=== PATIENT | male | born 1945 | race Caucasian/White ===

== ENCOUNTER 2018-01-19 20:25 | Inpatient (IN) | payer MEDICARE ==
--- NOTE | 2018-01-19 21:29 | ED ---
Abdominal Pain HPI - General Chief Complaint: Abdominal Pain Stated Complaint: vomiting/abdominal pain Time Seen by Provider: 01/19/18 21:28 Source: patient Mode of arrival: ambulatory Limitations: no limitations - History of Present Illness Initial Comments: Mr. Daniel is a 72-year-old male with a past medical history significant for recurrent episodes of diverticulitis in the past 2 presents the emergency department today for reevaluation of left lower quadrant abdominal pain, diarrhea, nausea and vomiting. Patient reports that a few weeks ago he had left lower quadrant abdominal pain which he suspected was diverticulitis, he was evaluated by his primary care physician and given oral antibiotics which she completed. He reports he had a couple weeks of resolution of his symptoms at that time. Patient states that on Wednesday he began feeling pain in his left lower quadrant with some associated diarrhea. This persisted so he saw his doctor again on Wednesday and was prescribed Augmentin. Patient reports he has been attempting to take the Augmentin but has been very nauseated and has vomited multiple times. He reports that he thinks he is only been unable to hold down approximately 2 doses of the medication. He reports that he continues to have left lower quadrant abdominal pain, his diarrhea has subsided and he states that he feels like it's because they're simply nothing left inside of him. Patient believes his last colonoscopy was approximately 3 years ago, a confirm that he has diverticulosis as well as polyps and he was advised to follow-up in 5 years. Patient reports subjective feeling feverish, chills, nausea, nonbloody nonbilious emesis, nonbloody diarrhea. He denies any chest pain, palpitations or shortness of breath. - Related Data Home Medications Medication Instructions Recorded Confirmed Aspirin 325 mg PO Q4-6H PRN 05/20/15 05/21/15 Multivitamins, Thera [Multivitamin] 1 tab PO DAILY 05/20/15 05/21/15 Allergies Allergy/AdvReac Type Severity Reaction Status Date / Time No Known Allergies Allergy Verified 01/19/18 20:39 Review of Systems ROS Statement: Those systems with pertinent positive or pertinent negative responses have been documented in the HPI. ROS Other: All systems not noted in ROS Statement are negative. Past Medical History Past Medical History: No Reported History Additional Past Medical History / Comment(s): HYPOTENSION. History of Any Multi-Drug Resistant Organisms: None Reported Past Surgical History: Cholecystectomy Additional Past Surgical History / Comment(s): POLYPS. BILATARAL CATARACTS. CUT TO WRIST, STICHES ( WAS NOT SURE OF WHAT SIDE). Past Anesthesia/Blood Transfusion Reactions: No Reported Reaction Past Psychological History: No Psychological Hx Reported Smoking Status: Never smoker Past Alcohol Use History: Occasional Past Drug Use History: None Reported General Exam Limitations: no limitations General appearance: alert, other (Appears uncomfortable) Head exam: Present: atraumatic, normocephalic Eye exam: Present: normal appearance, PERRL, EOMI ENT exam: Present: mucous membranes moist Neck exam: Present: normal inspection Respiratory exam: Present: normal lung sounds bilaterally. Absent: respiratory distress Cardiovascular Exam: Present: regular rate, normal rhythm GI/Abdominal exam: Present: soft, distended, tenderness, guarding (Voluntary guarding), normal bowel sounds. Absent: rebound, rigid, mass, hernia Rectal exam: Present: deferred Extremities exam: Present: normal inspection Back exam: Present: normal inspection Neurological exam: Present: alert, oriented X3 Psychiatric exam: Present: normal affect, normal mood Skin exam: Present: warm, dry, intact Course Vital Signs 01/19/18 01/19/18 20:34 23:44 Temperature 99.2 F 98.6 F Pulse Rate 72 62 Respiratory 16 20 Rate Blood Pressure 140/82 115/63 O2 Sat by Pulse 97 95 Oximetry Medical Decision Making - Medical Decision Making Patient was seen and evaluated, history was obtained from the patient and at bedside Patient with a history of recurrent diverticulitis, had an apparent episode 3-4 weeks ago which was treated with by mouth antibiotics, no imaging was completed at that time Patient with persistent left lower quadrant abdominal pain for 3-4 days duration , vomiting up his oral antibiotics, multiple episodes of diarrhea. Vital signs with no Sirs criteria Labs and imaging, IV fluids morphine and Zofran were ordered Labs with leukocytosis with neutrophilia Patient care was discussed with patient's primary care physician Dr. Graham who is very familiar with this patient, computed tomography scan is still pending but he recommends admission for IV antibiotics given the patient's history. It CT reveals any acute surgical pathology surgery is to be consult and I will update him. Computed tomography scan reveals acute diverticulitis without abscess or perforation. At this time we will continue with the plan as discussed with Dr. Graham, patient will be admitted for IV antibiotics, IV pain management and antiemetics. IV fluids were ordered. - Lab Data Result diagrams: 01/19/18 21:32 01/19/18 21:32 Lab Results 01/19/18 01/19/18 01/19/18 Range/Units 21:32 21:32 21:32 WBC 16.4 H (3.8-10.6) k/uL RBC 5.09 (4.30-5.90) m/uL Hgb 15.8 (13.0-17.5) gm/dL Hct 48.0 (39.0-53.0) % MCV 94.4 (80.0-100.0) fL MCH 31.1 (25.0-35.0) pg MCHC 32.9 (31.0-37.0) g/dL RDW 13.1 (11.5-15.5) % Plt Count 240 (150-450) k/uL Neutrophils % 83 % Lymphocytes % 10 % Monocytes % 6 % Eosinophils % 1 % Basophils % 0 % Neutrophils # 13.6 H (1.3-7.7) k/uL Lymphocytes # 1.6 (1.0-4.8) k/uL Monocytes # 0.9 (0-1.0) k/uL Eosinophils # 0.2 (0-0.7) k/uL Basophils # 0.0 (0-0.2) k/uL PT 10.6 (9.0-12.0) sec INR 1.1 (<1.2) APTT 21.5 L (22.0-30.0) sec Sodium 139 (137-145) mmol/L Potassium 4.6 (3.5-5.1) mmol/L Chloride 103 (98-107) mmol/L Carbon Dioxide 29 (22-30) mmol/L Anion Gap 7 mmol/L BUN 23 H (9-20) mg/dL Creatinine 1.08 (0.66-1.25) mg/dL Est GFR (CKD-EPI)AfAm 78 (>60 ml/min/1.73 sqM) Est GFR (CKD-EPI)NonAf 68 (>60 ml/min/1.73 sqM) Glucose 108 H (74-99) mg/dL Calcium 9.3 (8.4-10.2) mg/dL Total Bilirubin 0.9 (0.2-1.3) mg/dL AST 23 (17-59) U/L ALT 26 (21-72) U/L Alkaline Phosphatase 56 (38-126) U/L Total Protein 7.4 (6.3-8.2) g/dL Albumin 4.0 (3.5-5.0) g/dL Lipase 32 (23-300) U/L Urine Color Urine Appearance (Clear) Urine pH (5.0-8.0) Ur Specific [place] (1.001-1.035) Urine Protein (Negative) Urine Glucose (UA) (Negative) Urine Ketones (Negative) Urine Blood (Negative) Urine Nitrite (Negative) Urine Bilirubin (Negative) Urine Urobilinogen (<2.0) mg/dL Ur Leukocyte Esterase (Negative) 01/19/18 Range/Units 21:32 WBC (3.8-10.6) k/uL RBC (4.30-5.90) m/uL Hgb (13.0-17.5) gm/dL Hct (39.0-53.0) % MCV (80.0-100.0) fL MCH (25.0-35.0) pg MCHC (31.0-37.0) g/dL RDW (11.5-15.5) % Plt Count (150-450) k/uL Neutrophils % % Lymphocytes % % Monocytes % % Eosinophils % % Basophils % % Neutrophils # (1.3-7.7) k/uL Lymphocytes # (1.0-4.8) k/uL Monocytes # (0-1.0) k/uL Eosinophils # (0-0.7) k/uL Basophils # (0-0.2) k/uL PT (9.0-12.0) sec INR (<1.2) APTT (22.0-30.0) sec Sodium (137-145) mmol/L Potassium (3.5-5.1) mmol/L Chloride (98-107) mmol/L Carbon Dioxide (22-30) mmol/L Anion Gap mmol/L BUN (9-20) mg/dL Creatinine (0.66-1.25) mg/dL Est GFR (CKD-EPI)AfAm (>60 ml/min/1.73 sqM) Est GFR (CKD-EPI)NonAf (>60 ml/min/1.73 sqM) Glucose (74-99) mg/dL Calcium (8.4-10.2) mg/dL Total Bilirubin (0.2-1.3) mg/dL AST (17-59) U/L ALT (21-72) U/L Alkaline Phosphatase (38-126) U/L Total Protein (6.3-8.2) g/dL Albumin (3.5-5.0) g/dL Lipase (23-300) U/L Urine Color Yellow Urine Appearance Clear (Clear) Urine pH 5.5 (5.0-8.0) Ur Specific [place] 1.026 (1.001-1.035) Urine Protein Trace H (Negative) Urine Glucose (UA) Negative (Negative) Urine Ketones 1+ H (Negative) Urine Blood Negative (Negative) Urine Nitrite Negative (Negative) Urine Bilirubin Negative (Negative) Urine Urobilinogen 3.0 (<2.0) mg/dL Ur Leukocyte Esterase Negative (Negative) Disposition Clinical Impression: Diverticulitis Disposition: ADMITTED IP TO THIS [facility] Condition: Good Is patient prescribed a controlled substance at d/c from ED?: No Referrals: Stew Graham MD [Primary Care Provider] - 1-2 days Decision Time: 23:27
[2018-01-19] MEDS ORDERED: SODIUM CHLORIDE 0.9% 1,000 ML IV STA (21:42)
[2018-01-19] MEDS ORDERED: MORPHINE SULFATE 4 MG/ML SYRINGE IV STA (21:42)
[2018-01-19 21:57] LABS: Appearance,Urine Clear (Clear); Basophils % (A) 0 %; Bilirubin,Urine Negative (Negative); Blood,Urine Negative (Negative); Color,Urine Yellow; Eosinophils # (A) 0.2 k/uL (0-0.7); Eosinophils % (A) 1 %; Glucose,Urine (UA) Negative (Negative); HGB 15.8 gm/dL (13.0-17.5); Ketones,Urine 1+ (Negative); Leukocyte Esterase,Urine Negative (Negative); Lymphocytes # (A) 1.6 k/uL (1.0-4.8); Lymphocytes % (A) 10 %; MCH 31.1 pg (25.0-35.0); MCHC 32.9 g/dL (31.0-37.0); MCV 94.4 fL (80.0-100.0); Mean Platelet Volume 8.4; Monocytes # (A) 0.9 k/uL (0-1.0); Monocytes % (A) 6 %; Neutrophils # (A) 13.6 k/uL (1.3-7.7); Neutrophils % (A) 83 %; Nitrite,Urine Negative (Negative); PH, Urine 5.5 (5.0-8.0); Platelet Count 240 k/uL (150-450); Protein,Urine Trace (Negative); RBC 5.09 m/uL (4.30-5.90); RDW 13.1 % (11.5-15.5); Specific Gravity,Urine 1.026 (1.001-1.035); WBC 16.4 k/uL (3.8-10.6)
[2018-01-19] MEDS ORDERED: ONDANSETRON 4 MG/2 ML VIAL IVP STA (22:01)
[2018-01-19 22:05] LABS: Calcium 9.3 mg/dL (8.4-10.2); Potassium 4.6 mmol/L (3.5-5.1); Total Bilirubin 0.9 mg/dL (0.2-1.3); Total Protein 7.4 g/dL (6.3-8.2)
[2018-01-19 22:12] LABS: INR 1.1 (<1.2); Prothrombin Time 10.6 sec (9.0-12.0)
[2018-01-19 22:25] LABS: Partial Thromboplastin Time 21.5 sec (22.0-30.0)
[2018-01-19] MEDS ORDERED: PIPERACILLIN-TAZOBACTAM 3.375 GM in DEXTROSE/WATER 1 50ML.BAG IVPB STA (22:56)
--- NOTE | 2018-01-19 23:04 | CT ---
EXAMINATION TYPE: CT abdomen pelvis wo con DATE OF EXAM: 01/19/2018 COMPARISON: 09/03/2009 HISTORY: Abdominal pain, diverticulitits CT DLP: 793.9 mGycm Automated exposure control for dose reduction was used. TECHNIQUE: Helical acquisition of images was performed from the lung bases through the pelvis. FINDINGS: Lung bases are clear of consolidation. There is no pleural effusion. Heart size is normal. Liver spleen pancreas appear normal. Bile ducts are not dilated. There are clips from cholecystectomy . There is no adrenal mass. Kidneys have normal size. There are left renal parapelvic cysts. Ureters ar e not dilated. There is wall thickening and fat stranding around the proximal sigmoid colon. This harman sures 8 cm in length. There are numerous sigmoid diverticula. There is small amount of fluid in the l eft paracolic gutter. There is no sign of free air. There is no evidence of a thickened appendix. Sma ll bowel appears normal. There is no retroperitoneal adenopathy. Bladder distends smoothly. There is no free fluid in the pelvis. Lumbar spine is intact. IMPRESSION: INFLAMMATORY CHANGES AROUND THE PROXIMAL SIGMOID COLON RELATED TO ACUTE DIVERTICULITIS. NO DRAINABLE FLUID COLLECTION. THIS APPEARS NEW COMPARED TO OLD CT SCAN. NORMAL APPENDIX.
[2018-01-19] MEDS ORDERED: ONDANSETRON 4 MG/2 ML VIAL IVP PRN (23:23)
[2018-01-19] MEDS ORDERED: NALOXONE 0.4 MG/ML 1 ML VIAL IV PRN (23:23)
[2018-01-20] MEDS: MORPHINE SULFATE 4 MG/ML SYRINGE IV PRN ×2 (00:57→06:47)
[2018-01-20] MEDS: SODIUM CHLORIDE 0.9% 1,000 ML IV SCH ×4 (02:23→20:38)
[2018-01-20] MEDS: KETOROLAC 30 MG/ML 1 ML VIAL IVP SCH ×3 (12:07→23:05)
[2018-01-20] MEDS: HEPARIN SODIUM,PORCINE 5,000 UNIT/ML 1 ML VIAL SQ SCH ×2 (16:27→23:08)
--- NOTE | 2018-01-20 23:36 | HP ---
HISTORY AND PHYSICAL ATTENDING PHYSICIAN: Dr. Angeles Graham. CHIEF COMPLAINT: Abdominal pain. HISTORY OF PRESENT ILLNESS: This 72-year-old gentleman presents to the hospital emergency room with severe abdominal pain, some nausea, vomiting, and also an episode of diarrhea with no blood or mucus in the stool. The pain is mostly focused on the left lower quadrant and suprapubic area. He has had some fever and chills. The patient's symptoms started a few days ago. He was placed on Augmentin on the outpatient. The patient had similar symptoms about a month ago. It was a mild episode and it resolved. The patient at this time has a definite fever, localized abdominal pain and leukocytosis. No evidence of sepsis. The patient is seen in the emergency room, started on IV medications, hydration after a CT scan of the abdomen confirmed the patient had acute diverticulitis. PAST MEDICAL HISTORY: Is primarily significant for episode of acute diverticulitis about a month ago. Previous history of hyperlipidemia, BPH, bradycardia, allergic rhinitis and some degenerative arthritis. No history of any diabetes, lung disease, liver disease, kidney disease, ulcers, TB, hepatitis. No history of any rheumatic fever, myocardial infarction or CVA. Also significant for mild intermittent bronchial asthma. PAST SURGICAL HISTORY: Significant for cholecystectomy, bilateral cataract surgery, bilateral eyelid surgery. PERSONAL HISTORY: Never smoker. Alcohol: None. SOCIAL HISTORY: Patient , lives with his spouse, is a retired manufacturing, exercises occasionally. MEDICATIONS AT HOME: Included: 1. Augmentin 500/125 one b.i.d. 2. Aspirin 1 p.r.n. 3. Multivitamins daily. FAMILY MEDICAL HISTORY: Father at the age of 52 of a malignancy, unknown site. Mother at the of 80. She had a story of dementia. Brother at the age of 85, had history of dementia. A brother, 77, with a history of CVA. A sister, 74, , history of valvular heart disease and sister, 87 with history of dementia. The patient has a sister, 62, living with history of degenerative arthritis. The patient has no children. REVIEW OF SYSTEMS: NEURO: Denies any headaches, dizziness. No double vision, blurred vision. No symptoms of TIA, syncope, seizures. PSYCH: No anxiety, depression. CARDIAC: Denies chest pain, angina, palpitations. RESPIRATORY: Denies shortness of breath, cough, hemoptysis. GI: Present complaint of nausea, vomiting, abdominal pain, diarrhea. : No symptoms of dysuria, hematuria. Has a decreased stream and frequency. EXTREMITIES: Denies pain, edema. CONSTITUTIONAL: Fever and chills. SKIN: No rash. MUSCULOSKELETAL: Arthritic symptoms, mild. PHYSICAL EXAMINATION: Pleasant gentleman at present in no distress after having received pain medication earlier. Vital signs revealed patient's presenting temperature was 99.2, pulse 72, respirations 16, blood pressure 140/82, pulse ox 97% on room air. At the time of my evaluation, patient's temp is 97.9, pulse 67, respirations 14, blood pressure 120/70, pulse ox 93% on room air. HEENT: Normocephalic. Neck is supple. Pupils reactive. Conjunctivae are pink. Sclerae are nonicteric. Nostrils clear. Neck reveals no JVD, carotid bruits or thyromegaly. No supraclavicular lymphadenopathy. CHEST: Clear to auscultation and percussion. CARDIAC: Normal S1, S2 with no gallops, murmurs, rubs. ABDOMEN: Mildly protuberant. Tenderness with guarding, left lower quadrant. Minimal rebound tenderness. Bowel sounds active. RECTAL: Deferred. Extremities reveal no edema. No tenderness. Good pulses both upper and lower extremities. Neurologically, awake, alert, oriented x3 with well- coordinated movements. Small left inguinal hernia present. LABORATORY ASSESSMENT: CBC revealed white count 16.4, hemoglobin 15.8 and the patient had a left shift. INR is normal. Electrolytes are normal. BUN 23, creatinine 1.08, random glucose 108, normal hepatic function. Lipase is normal. Urine specific gravity 1.026. 1+ ketones. CT scan reveals acute diverticulitis changes, sigmoid area. ASSESSMENT: 1. Acute colonic diverticulitis. 2. Leukocytosis related to the diverticulitis. 3. Benign prostatic hypertrophy with urinary outlet obstruction symptoms. PLAN: The patient is admitted to the hospital, started on IV fluids, Zosyn and pain medication. We will add Toradol to the regimen. Clear liquids for the next 48 hours and progress according to tolerance. The patient's condition discussed with the patient. Expect a stay of length in the hospital about 3 days. MMODL / IJN: [id number] /
[2018-01-21] MEDS: KETOROLAC 30 MG/ML 1 ML VIAL IVP SCH ×3 (05:52→16:59)
[2018-01-21] MEDS: HEPARIN SODIUM,PORCINE 5,000 UNIT/ML 1 ML VIAL SQ SCH ×2 (07:55→15:54)
[2018-01-21] MEDS: PIPERACILLIN-TAZOBACTAM 3.375 GM in DEXTROSE/WATER 1 50ML.BAG IVPB SCH ×2 (08:36→15:55)
[2018-01-21] MEDS: SODIUM CHLORIDE 0.9% 1,000 ML IV SCH (12:01)
--- NOTE | 2018-01-22 00:10 | PN ---
PROGRESS NOTE ATTENDING PHYSICIAN: Dr. Sonia Graham. CHIEF COMPLAINT: Re-evaluation. HISTORY OF PRESENT ILLNESS: A 72-year-old gentleman was admitted to the hospital with acute abdominal pain, has evidence of diverticulitis. The patient has been placed on clear liquids, IV hydration, antibiotic and pain medication. He still has significant amount of pain. No nausea, vomiting. Today, he is tolerating clear liquids. No diarrhea. REVIEW OF SYSTEMS: NEURO: Denies any headaches, dizziness. PSYCH: No anxiety. CARDIAC: No chest pain, angina, palpitations. RESPIRATORY: Denies shortness of breath, cough, hemoptysis. GI: No nausea, vomiting. Does not complain of abdominal pain. No diarrhea, constipation. : No symptoms of dysuria, hematuria. EXTREMITIES: No pain. CONSTITUTIONAL: No fever, chills. PHYSICAL EXAMINATION: Pleasant gentleman in no distress. VITAL SIGNS: Temperature 98.1, pulse 65, respirations 100, blood pressure 140/84, pulse ox 95% on room air. HEENT: Normocephalic. NECK: No JVD. CHEST: Clear to auscultation and percussion. CARDIAC: Normal S1, S2 with no gallops, murmurs. Abdomen is tender with guarding left lower quadrant and suprapubic area. Bowel sounds are active. Extremities reveal no edema. No tenderness. The patient does have some rebound tenderness lower abdomen. Bowel sounds are active. Extremities reveal no edema. No tenderness. NEUROLOGIC: Awake, alert, oriented with well-coordinated movements. LABORATORY ASSESSMENT: None. ASSESSMENT: Acute diverticulitis, recurrent. PLAN: The patient at present is stable. Continue present medical regimen. The patient is still markedly tender with guarding and rebound. In view of this, will continue the patient on clear liquids, antibiotic, pain medication. The patient is on DVT prophylaxis. Prognosis remains guarded. Condition discussed with the patient. MMODL / IJN: [id number] /
[2018-01-22] MEDS: KETOROLAC 30 MG/ML 1 ML VIAL IVP SCH ×6 (00:49→23:23)
[2018-01-22] MEDS: HEPARIN SODIUM,PORCINE 5,000 UNIT/ML 1 ML VIAL SQ SCH ×4 (00:49→23:21)
[2018-01-22] MEDS: PIPERACILLIN-TAZOBACTAM 3.375 GM in DEXTROSE/WATER 1 50ML.BAG IVPB SCH ×4 (01:03→23:22)
[2018-01-22] MEDS: SODIUM CHLORIDE 0.9% 1,000 ML IV SCH ×2 (01:04→12:58)
[2018-01-22 08:20] LABS: HCT 38.3 % (39.0-53.0); HGB 13.1 gm/dL (13.0-17.5); MCH 31.9 pg (25.0-35.0); MCHC 34.2 g/dL (31.0-37.0); MCV 93.3 fL (80.0-100.0); Mean Platelet Volume 8.7; Platelet Count 212 k/uL (150-450); RBC 4.11 m/uL (4.30-5.90); RDW 12.9 % (11.5-15.5); WBC 6.2 k/uL (3.8-10.6)
[2018-01-22 08:45] LABS: Calcium 8.6 mg/dL (8.4-10.2); Potassium 4.1 mmol/L (3.5-5.1)
--- NOTE | 2018-01-22 23:44 | PN ---
PROGRESS NOTE ATTENDING PHYSICIAN: Dr. Angeles Graham. CHIEF COMPLAINT: Re-evaluation. HISTORY OF PRESENT ILLNESS: A 72-year-old was admitted to the hospital with acute abdominal pain. The patient had a low-grade fever and an elevated white count. Mild tenderness with some guarding, rebound tenderness in the left lower quadrant. The patient is feeling better. Symptoms are improved. Still has abdominal pain. REVIEW OF SYSTEMS: NEURO: Denies any headaches, dizziness. PSYCH: No anxiety. CARDIAC: No chest pain, angina, palpitation. RESPIRATORY: Denies shortness of breath, cough, hemoptysis. GI: No nausea, vomiting. Complains of abdominal pain. No diarrhea. Bowel movements normal. Extremities reveal no pain, edema. CONSTITUTIONAL: No fever, chills. PHYSICAL EXAMINATION: Pleasant gentleman in no distress. Vital signs revealed temperature 97.1, pulse 70, respirations 16, blood pressure 145/77, pulse ox of 97% on room air. HEENT: Normocephalic. NECK: No JVD. CHEST: Clear to auscultation, percussion. CARDIAC: Normal S1, S2 with no gallops, murmurs. Abdomen is tender, left lower quadrant with some guarding, but no rebound tenderness. Symptoms are improving. Extremities reveal no edema. No tenderness. Neurologically, awake, alert, oriented with well-coordinated movements. LABORATORY ASSESSMENT: Revealed the white count was down to normal 6.2, hemoglobin 13.1, platelets 212. Electrolytes: BUN, creatinine were in normal range. ASSESSMENT: 1. Acute diverticulitis. 2. History of benign prostatic hypertrophy. PLAN: The patient at present is stable. Continue present medical regimen. Patient's condition discussed with the patient. Prognosis guarded. Will advance the diet to full liquids today and tomorrow. Potential discharge home tomorrow. MMODL / IJN: [id number] /
[2018-01-23] MEDS: SODIUM CHLORIDE 0.9% 1,000 ML IV SCH (06:07)
[2018-01-23] MEDS: KETOROLAC 30 MG/ML 1 ML VIAL IVP SCH (06:07)
[2018-01-23 06:22] VITALS: BP 150/85; PULSE 58; RESP 16; TEMP 96.4
[2018-01-23] MEDS: PIPERACILLIN-TAZOBACTAM 3.375 GM in DEXTROSE/WATER 1 50ML.BAG IVPB SCH (08:18)
[2018-01-23] MEDS: HEPARIN SODIUM,PORCINE 5,000 UNIT/ML 1 ML VIAL SQ SCH (08:18)
--- NOTE | 2018-01-23 10:35 | P.DS ---
Providers Date of admission: 01/19/18 23:27 Expected date of discharge: 01/23/18 Attending physician: Stew Graham Primary care physician: Stew Graham [facility] Course: This 72-year-old gentleman was admitted to the hospital with nausea vomiting and severe left lower quadrant and suprapubic area abdominal pain. Low-grade fever. Patient was being treated on outpatient for diverticulitis in view of the severe pain patient presents to the hospital. CAT scan does reveal and confirmed acute diverticulitis without abscess formation. The patient's general condition improved with antiemetics hydration and subsequently admitted to the hospital for continued IV antibiotic and. And treatment. The patient initially was placed on clear liquids and subsequently advanced to full liquids. He was tolerating this well. Patient's pain is improved significantly. His white count was 16.4 at the time of admissions come back to normal range at 6.4. Patient had no further fever his generally feeling better and is review of this is being discharged home. He will be discharged home on Cipro 500 mg twice a day and Flagyl 500 3 times a day. He'll follow up on the outpatient. Patient's condition discussed with the patient in detail prognosis guarded. His diet will be low residue for the next 2 weeks and then subsequently high fiber has been told to avoid nuts and seeds Final diagnoses 1. Acute colonic diverticulitis 2. BPH. Patient Condition at Discharge: Good Plan - Discharge Summary Discharge Rx Participant: No New Discharge Prescriptions: New Ciprofloxacin [Cipro Susp] 500 mg PO AC-BID #14 tab metroNIDAZOLE [Flagyl] 500 mg PO TID #21 tab Continue Multivitamins, Thera [Multivitamin (formulary)] 1 tab PO DAILY Discontinued Aspirin 325 mg PO Q4-6H PRN PRN Reason: Pain Amoxic-Pot Clav 500-125 mg [Augmentin 500-125 mg] 1 tab PO Q12HR Discharge Medication List Multivitamins, Thera [Multivitamin (formulary)] 1 tab PO DAILY 05/20/15 [History ] Ciprofloxacin [Cipro Susp] 500 mg PO AC-BID #14 tab 01/23/18 [Rx] metroNIDAZOLE [Flagyl] 500 mg PO TID #21 tab 01/23/18 [Rx] Follow up Appointment(s)/Referral(s): Stew Graham MD [Primary Care Provider] - 1-2 days Activity/Diet/Wound Care/Special Instructions: low fiber/residual diet Discharge Disposition: HOME SELF-CARE
== END 2018-01-23 10:54 | disposition home or self-care (01) | DRG 392 ==
LOC: EC 20:25 → 4MS4W 23:27
PROVIDERS: ADMIT Internal Medicine; ATTEND Internal Medicine
DX: K57.32 Diverticulitis of large intestine without perforation or abscess without bleeding (principal); N13.8 Other obstructive and reflux uropathy; D72.829 Elevated white blood cell count, unspecified; E78.5 Hyperlipidemia, unspecified; J45.909 Unspecified asthma, uncomplicated; N40.1 Benign prostatic hyperplasia with lower urinary tract symptoms; Z79.82 Long term (current) use of aspirin; Z90.49 Acquired absence of other specified parts of digestive tract; Z98.42 Cataract extraction status, left eye; Z98.41 Cataract extraction status, right eye
CPT/HCPCS: 36415; 74176; 80048; 80053; 81003; 83690; 85025; 85027; 85610; 85730; 87040; 96361; 96365; 96366; 96375; 99285

== ENCOUNTER → 2019-11-16 | Outpatient (CLI) | payer MEDICARE ==
[2019-11-16 12:12] LABS: Basophils # (A) 0.1 k/uL (0-0.2); Basophils % (A) 1 %; Eosinophils # (A) 0.1 k/uL (0-0.7); Eosinophils % (A) 1 %; HCT 46.4 % (39.0-53.0); HGB 14.8 gm/dL (13.0-17.5); Lymphocytes # (A) 2.4 k/uL (1.0-4.8); Lymphocytes % (A) 36 %; MCH 31.6 pg (25.0-35.0); MCHC 31.9 g/dL (31.0-37.0); MCV 99.1 fL (80.0-100.0); Monocytes # (A) 0.5 k/uL (0-1.0); Monocytes % (A) 7 %; Neutrophils # (A) 3.5 k/uL (1.3-7.7); Neutrophils % (A) 52 %; Platelet Count 247 k/uL (150-450); RBC 4.69 m/uL (4.30-5.90); RDW 12.9 % (11.5-15.5); WBC 6.7 k/uL (3.8-10.6)
[2019-11-16 12:21] LABS: Calcium 9.2 mg/dL (8.4-10.2); Potassium 4.9 mmol/L (3.5-5.1)
== END | disposition home or self-care (01) ==
LOC: LABPAT 11:39
PROVIDERS: ATTEND Urology
DX: Z01.818 Encounter for other preprocedural examination (principal); N40.1 Benign prostatic hyperplasia with lower urinary tract symptoms; R53.83 Other fatigue
CPT/HCPCS: 80048; 85025; 93005

== ENCOUNTER 2019-11-23 06:24 | Day surgery (SDC) | payer MEDICARE ==
[2019-11-22 09:06] VITALS: BMI 28.5
--- NOTE | 2019-11-23 05:23 | P.GSHP ---
History of Present Illness H&P Date: 11/21/19 Chief Complaint: BPH with Obstruction The patient is a 74-year-old white male with a several year history of voiding symptoms. His primary symptoms are weak urinary stream, straining, intermittency, a feeling of incomplete emptying, and nocturia 6. Prior treatment with Flomax was unsuccessful. He underwent urinary flow studies, revealing a peak flow rate of 12 mL/s. The postvoid residual was 200 mL, though previously it was 21 mL. Cystoscopy revealed trilobar BPH, with a prosthetic length of 4 cm. Alternative treatment options have been reviewed, and he has elected to undergo a transurethral resection of prostate (TURP). - Genitourinary (Female) Genitourinary: Denies dysuria, Denies hematuria Past Medical History Past Medical History: No Reported History Additional Past Medical History / Comment(s): HYPOTENSION. History of Any Multi-Drug Resistant Organisms: None Reported Past Surgical History: Cholecystectomy Additional Past Surgical History / Comment(s): POLYPS. BILATARAL CATARACTS. CUT TO WRIST, STICHES ( WAS NOT SURE OF WHAT SIDE). Past Anesthesia/Blood Transfusion Reactions: No Reported Reaction Past Psychological History: No Psychological Hx Reported Smoking Status: Never smoker Past Alcohol Use History: Occasional Past Drug Use History: None Reported - Past Family History Father Family Medical History: Cancer Additional Family Medical History / Comment(s): unknown Sister(s) Additional Family Medical History / Comment(s): Heart condition Brother(s) Family Medical History: CVA/TIA Medications and Allergies Home Medications Medication Instructions Recorded Confirmed Type Cholecalciferol (Vitamin D3) 2,000 unit PO DAILY 11/22/19 11/22/19 History [Vitamin D3] Flaxseed Oil 1,000 mg PO DAILY 11/22/19 11/22/19 History Glucosam/Chond/Hyalu/Cf Borate 1 each PO DAILY 11/22/19 11/22/19 History [Move Free Joint Health Tablet] Multivitamins, Thera [Multivitamin 1 tab PO DAILY 11/22/19 11/22/19 History (formulary)] Allergies Allergy/AdvReac Type Severity Reaction Status Date / Time No Known Allergies Allergy Verified 11/22/19 08:56 Surgical - Exam - General well developed, well nourished, no distress - Respiratory normal respiratory effort - Abdomen Abdomen: soft, non tender, no guarding, no rigid, no rebound Hernia: no none, no inguinal, no epigastric, no incisional, no reducible, no femoral, no umbilical, no scrotal, no incarcerated - Genitourinary normal penis with no external lesions, testicles non-tender - Rectum Rectum: normal sphincter tone, no masses, other (Prostate moderately enlarged but smooth) - Psychiatric oriented to time, oriented to person, oriented to place, speech is normal, memory intact Assessment and Plan (1) Benign prostatic hyperplasia with lower urinary tract symptoms Status: Acute Code(s): N40.1 - BENIGN PROSTATIC HYPERPLASIA WITH LOWER URINARY TRACT SYMP SNOMED Code(s): 017796246 Plan: I had a lengthy discussion with the patient and his regarding alternative B PH treatment options. He failed treatment with an alpha-ondina. Options include observation, finasteride, and TURP. He has elected to undergo the latter. The procedure has been reviewed in detail. Also discussed were potential risks, which include anesthesia, bleeding, infection, retrograde ejaculation, incontinence, erectile dysfunction, and vesical neck contracture. He understands the possible need for hospitalization postoperatively.
[~2019-11-23 06:24] MED LIST: DEXAMETHASONE SOD PHOSPHATE 10 MG/ML 1 ML VIAL IV ONE; HYDROmorphone 0.5 MG/0.5 ML SYRINGE IVP PRN; LIDOCAINE 1% (10MG/ML) FOR IV START INTRADERMA PRN; ONDANSETRON 4 MG/2 ML VIAL IVP ONE
[2019-11-23] MEDS: LACTATED RINGERS 1,000 ML IV SCH ×2 (06:53→20:56)
[2019-11-23] MEDS ORDERED: LIDOCAINE 1% INJ 10MG/ML (20 ML MDV) ONE (07:26)
[2019-11-23] MEDS ORDERED: SUCCINYLCHOLINE CHLORIDE VIAL 200 MG/10 ML VIAL IV ONE (07:26)
[2019-11-23] MEDS ORDERED: PROPOFOL 10 MG/ML 20 ML VIAL IV ONE (07:26)
[2019-11-23] MEDS ORDERED: MIDAZOLAM 2 MG/2 ML VIAL ONE (07:26)
[2019-11-23] MEDS ORDERED: ePHEDrine SULFATE/0.9% NACL/PF 50 MG/5 ML SYRINGE IV ONE (07:26)
[2019-11-23] MEDS ORDERED: fentaNYL (PF) 50 MCG/ML 2 ML AMP ONE (07:26)
--- NOTE | 2019-11-23 10:57 | P.OP ---
Date of Procedure: 11/23/19 Preoperative Diagnosis: BPH with obstruction Postoperative Diagnosis: Same Procedure(s) Performed: Cystoscopy, bipolar transurethral resection of prostate (TURP) Anesthesia: JASMINE Surgeon: Kojo Sun Estimated Blood Loss (ml): 50 IV fluids (ml): 600 Pathology: other (Prostate chips) Condition: stable Disposition: PACU Indications for Procedure: The patient is a 74-year-old white male with a several year history of voiding symptoms. His primary symptoms are weak urinary stream, straining, intermittency, a feeling of incomplete emptying, and nocturia 6. Prior treatment with Flomax was unsuccessful. He underwent urinary flow studies, revealing a peak flow rate of 12 mL/s. The postvoid residual was 200 mL, though previously it was 21 mL. Cystoscopy revealed trilobar BPH, with a prosthetic length of 4 cm. Alternative treatment options have been reviewed, and he has elected to undergo a transurethral resection of prostate (TURP). Operative Findings: Trilobar BPH, completely obstructing. Description of Procedure: The patient was taken in the operating room and placed in the dorsolithotomy position. The external genitalia was prepped and draped sterilely. The 25- English ACMI resectoscope sheath was introduced into the bladder. The bladder was inspected. Both ureteral orifices were of normal anatomic location and configuration, and clear urine effluxed from both. No tumors or foreign bodies were seen. Examination of the prostate revealed complete obstruction with a trilobar configuration. Using the bipolar cutting loop, the lateral lobes were resected down to the surgical capsule. The floor of the prostate was then resected, proximal to the verumontanum. Lastly, any remaining anterior tissue was resected. The remaining apical tissue was then carefully resected, as the apex extended beyond the verumontanum. A small amount of apical tissue remained to avoid injury to the external urinary sphincter. The resection was carried down to the surgical capsule in all 4 quadrants. A small capsular perforation was noted on the right side. The prostatic fossa was then carefully examined, and any areas of bleeding were controlled with electrocautery. Excellent hemostasis was attained. The resectoscope was withdrawn into the bulbous urethra. The external urinary sphincter remained intact. The prostatic fossa was open. The apomio evacuator was used to remove all prostate chips from the bladder. These were saved and sent for pathologic examination. The resectoscope was removed, and a 22 English, 3-Way Bernal catheter was placed. The return was essentially pink tinged. Continuous bladder irrigation was started using 0.9 normal saline. The patient tolerated the procedure well was taken to the recovery room in stable condition.
[2019-11-23] MEDS ORDERED: MAG HYDROX/AL HYDROX/SIMETH 30 ML CUP PO PRN (10:58)
[2019-11-23] MEDS ORDERED: BELLADONNA-OPIUM 16.2-60 MG 1 EACH SUPP RECTAL PRN (10:58)
[2019-11-23] MEDS ORDERED: ACETAMINOPHEN TAB 325 MG TAB PO PRN (10:58)
[2019-11-23] MEDS ORDERED: LACTATED RINGERS 1,000 ML IV ONE (11:12)
[2019-11-23] MEDS: DEXTROSE 5%-0.45% NACL 1,000 ML IV SCH ×2 (12:15→23:42)
[2019-11-23] MEDS: SODIUM CHLORIDE 0.9% IRRIG 3,000 ML BAG IRRIGATION SCH ×3 (12:15→23:43)
[2019-11-23] MEDS: DOCUSATE 100 MG CAP PO SCH (20:22)
[2019-11-24] MEDS: SODIUM CHLORIDE 0.9% IRRIG 3,000 ML BAG IRRIGATION SCH (06:01)
[2019-11-24 07:47] VITALS: BP 159/84; PULSE 65; RESP 18; TEMP 98.3
--- NOTE | 2019-11-24 08:34 | P.DS ---
Providers Expected date of discharge: 11/24/19 Attending physician: Kojo Sun Primary care physician: Stew Graham - Discharge Diagnosis(es) (1) Benign prostatic hyperplasia with lower urinary tract symptoms Current Visit: No Status: Acute Hospital Course: On the day of admission, the patient underwent an uncomplicated bipolar TURP. Continuous bladder irrigation was running postoperatively. He developed clot irrigation overnight, requiring manual irrigation of the catheter. The following morning, he was comfortable. The Bernal catheter was draining clear yellow urine. He is to be discharged home with the Bernal catheter. Procedures: Cystoscopy, bipolar TURP on 11/23/2019 Patient Condition at Discharge: Good Plan - Discharge Summary Discharge Rx Participant: No New Discharge Prescriptions: No Action Glucosam/Chond/Hyalu/Cf Borate [Move Free Joint Health Tablet] 1 each PO DAILY Flaxseed Oil 1,000 mg PO DAILY Cholecalciferol (Vitamin D3) [Vitamin D3] 2,000 unit PO DAILY Multivitamins, Thera [Multivitamin (formulary)] 1 tab PO DAILY Discharge Medication List Cholecalciferol (Vitamin D3) [Vitamin D3] 2,000 unit PO DAILY 11/22/19 [History] Flaxseed Oil 1,000 mg PO DAILY 11/22/19 [History] Glucosam/Chond/Hyalu/Cf Borate [Move Free Joint Health Tablet] 1 each PO DAILY 11/22/19 [History] Multivitamins, Thera [Multivitamin (formulary)] 1 tab PO DAILY 11/22/19 [History] Follow up Appointment(s)/Referral(s): Kojo Sun MD [STAFF PHYSICIAN] - 12/04/19 8:00 am Activity/Diet/Wound Care/Special Instructions: Discharge home with Bernal catheter. Drink plenty of fluids. Avoid straining. Discharge Disposition: HOME SELF-CARE
[2019-11-24] MEDS: DOCUSATE 100 MG CAP PO SCH (08:50)
== END 2019-11-24 11:50 | disposition home or self-care (01) ==
LOC: OR 06:24 → 4SSUR 10:55 → OR 11-24 11:50
PROVIDERS: ATTEND Urology
DX: N40.1 Benign prostatic hyperplasia with lower urinary tract symptoms (principal); N13.8 Other obstructive and reflux uropathy; I95.9 Hypotension, unspecified; Z90.49 Acquired absence of other specified parts of digestive tract; Z98.41 Cataract extraction status, right eye; Z98.42 Cataract extraction status, left eye; Z79.899 Other long term (current) drug therapy; Z80.9 Family history of malignant neoplasm, unspecified; Z82.49 Family history of ischemic heart disease and other diseases of the circulatory system; Z82.3 Family history of stroke
CPT/HCPCS: 88305; 52601; J2250; J0330; J1100; J0690; J2405; J2001; J3010; J2704; J1170

== ENCOUNTER → 2020-11-19 | Outpatient (CLI) | payer MEDICARE ==
--- NOTE | 2020-11-19 17:50 | XR ---
EXAMINATION TYPE: XR lumbar spine 2 or 3V DATE OF EXAM: 11/19/2020 CLINICAL HISTORY: Acute low back pain and left foot numbness. TECHNIQUE: Frontal and lateral images of the lumbar spine are obtained. COMPARISON: CT abdomen and pelvis January 19, 2018 FINDINGS: There are 5 lumbar type vertebral bodies redemonstrated. Persistent levoconvex scoliosis c entered at L3 level. Vertebral body heights are maintained. Zcer-vx-[id number] multilevel disc space na rrowing and spurring with relative sparing of L3-L4 level. Multilevel facet arthropathy lower lumbar spine. Multilevel spinous process hypertrophy. Cholecystectomy clips in the overlying soft tissue are redemonstrated. IMPRESSION: As above. No significant change from prior.
== END | disposition home or self-care (01) ==
LOC: RADXRMAIN 16:35
PROVIDERS: ATTEND Family Medicine
DX: M48.061 Spinal stenosis, lumbar region without neurogenic claudication (principal); M12.88 Other specific arthropathies, not elsewhere classified, other specified site
CPT/HCPCS: 72100

== ENCOUNTER → 2021-03-20 | Outpatient (CLI) | payer MEDICARE ==
--- NOTE | 2021-03-21 00:53 | CT ---
EXAMINATION TYPE: CT brain wo con DATE OF EXAM: 03/20/2021 COMPARISON: None INDICATION: c/o dizziness DLP: 1207 mGycm, Automated exposure control for dose reduction was used. CONTRAST: None CT of the brain is performed utilizing 3 mm thick sections through the posterior fossa and 3 mm thick sections through the remaining calvarium. Study is performed within 24 hours of arrival to the hosp ital. No abnormal hyperdensity is present to suggest an acute intracranial hemorrhage. No mass lesion is evident. No acute infarcts are evident. Periventricular white matter hypodensity is present, likely on the bas is of chronic white matter ischemic changes. Ventricles and sulci are appropriate for the patient age. Paranasal sinuses and mastoid air cells within the [id number] are clear. IMPRESSIONS: 1. Chronic appearing periventricular white matter changes.
== END | disposition home or self-care (01) ==
LOC: RADCTMAIN 17:52
PROVIDERS: ATTEND Internal Medicine
DX: R90.82 White matter disease, unspecified (principal)
CPT/HCPCS: 70450

== ENCOUNTER 2021-12-29 16:50 | Emergency (ER) | payer MEDICARE ==
[2021-12-29 17:25] VITALS: BP 179/76; PULSE 68; RESP 18; TEMP 97.7
--- NOTE | 2021-12-29 18:06 | ED ---
Abdominal Pain HPI - General Chief Complaint: Abdominal Pain Stated Complaint: abd pain Time Seen by Provider: 12/29/21 17:31 Source: patient, RN notes reviewed Mode of arrival: ambulatory Limitations: no limitations - History of Present Illness Initial Comments: Patient is a 76-year-old male presents emergency room with complaints of left lower quadrant pain ongoing for approximately 2 days with worsening of symptoms. He admits to having a diet high in seeds recently which has caused him to have diverticulitis flares in the past. He reports that he attempted to contact his primary care provider but he is currently out of town and his covering partner did not have availability. He states that he has been treated with oral medications in the past with good response. He denies any diarrhea, nausea or vomiting, radiation of his abdominal pain out of the left lower quadrant blood or mucus in his stool or changes in appetite. He denies any fevers or chills. He past medical history significant for hypertension otherwise he is healthy and not on medications on a regular basis. He denies any other complaints or concerns at this time. - Related Data Home Medications Medication Instructions Recorded Confirmed Cholecalciferol (Vitamin D3) 2,000 unit PO DAILY 11/22/19 11/23/19 [Vitamin D3] Glucosam/Chond/Hyalu/Cf Borate 1 each PO DAILY 11/22/19 11/23/19 [Move Free Joint Health Tablet] Multivitamins, Thera [Multivitamin 1 tab PO DAILY 11/22/19 11/23/19 (formulary)] flaxseed oiL [Flaxseed Oil] 1,000 mg PO DAILY 11/22/19 11/23/19 Previous Rx's Medication Instructions Recorded Ciprofloxacin [Cipro Susp] 500 mg PO BID 7 Days #14 ml 12/29/21 Allergies Allergy/AdvReac Type Severity Reaction Status Date / Time No Known Allergies Allergy Verified 12/29/21 17:25 Review of Systems ROS Statement: Those systems with pertinent positive or pertinent negative responses have been documented in the HPI. ROS Other: All systems not noted in ROS Statement are negative. Past Medical History Past Medical History: No Reported History Additional Past Medical History / Comment(s): HYPOTENSION. History of Any Multi-Drug Resistant Organisms: None Reported Past Surgical History: Cholecystectomy Additional Past Surgical History / Comment(s): POLYPS. BILATARAL CATARACTS. CUT TO WRIST, STICHES ( WAS NOT SURE OF WHAT SIDE). Past Anesthesia/Blood Transfusion Reactions: No Reported Reaction Past Psychological History: No Psychological Hx Reported Past Alcohol Use History: Occasional Past Drug Use History: None Reported - Past Family History Father Family Medical History: Cancer Additional Family Medical History / Comment(s): unknown Sister(s) Additional Family Medical History / Comment(s): Heart condition Brother(s) Family Medical History: CVA/TIA General Exam Limitations: no limitations General appearance: alert, in no apparent distress Head exam: Present: atraumatic, normocephalic, normal inspection Eye exam: Present: normal appearance, PERRL, EOMI. Absent: scleral icterus, conjunctival injection, periorbital swelling ENT exam: Present: normal exam, mucous membranes moist Neck exam: Present: normal inspection. Absent: tenderness, meningismus, lymphadenopathy Respiratory exam: Present: normal lung sounds bilaterally. Absent: respiratory distress, wheezes, rales, rhonchi, stridor Cardiovascular Exam: Present: regular rate, normal rhythm, normal heart sounds. Absent: systolic murmur, diastolic murmur, rubs, gallop, clicks GI/Abdominal exam: Present: soft, tenderness, normal bowel sounds. Absent: dist ended, organomegaly, mass Rectal exam: Present: deferred Extremities exam: Present: normal inspection Back exam: Present: normal inspection Neurological exam: Present: alert, oriented X3, CN II-XII intact Psychiatric exam: Present: normal affect, normal mood Skin exam: Present: warm, dry, intact, normal color. Absent: rash Course Vital Signs 12/29/21 17:22 Temperature 97.7 F Pulse Rate 68 Respiratory 18 Rate Blood Pressure 179/76 O2 Sat by Pulse 98 Oximetry Medical Decision Making - Medical Decision Making Patient with known diverticulosis history with previous diverticulitis episodes without any evidence of perforation at this time. No indication for diagnostic imaging or laboratory studies. Will start on oral treatment with cipro in the setting of no diarrhea will defer flagyl addition at this time. Discussed signs and symptoms of sepsis along with perforation advised to seek immediate medical attention if any of those symptoms occur. Encouraged soft diet and low residue diet until completion of treatment. Encouraged follow-up with primary care provider. Case discussed with Dr. Scruggs. Disposition Clinical Impression: Diverticulitis Disposition: HOME SELF-CARE Condition: Stable Instructions (If sedation given, give patient instructions): Diverticulitis (ED) Additional Instructions: Please follow a bland low residue diet. Avoid large seeds and nuts. Complete Cipro prescription as prescribed. If any worsening of abdominal pain, nausea, vomiting, diarrhea, fevers or chills please seek immediate medical attention. Please follow-up with your primary care provider. Please return to the Emergency Department if symptoms worsen or any other concerns. Prescriptions: Ciprofloxacin [Cipro Susp] 500 mg PO BID 7 Days #14 ml Is patient prescribed a controlled substance at d/c from ED?: No Referrals: Juan A De Jesus MD [Primary Care Provider] - 1-2 days Time of Disposition: 18:05
== END 2021-12-29 18:20 | disposition home or self-care (01) ==
LOC: EC 16:50
DX: K57.92 Diverticulitis of intestine, part unspecified, without perforation or abscess without bleeding (principal)
CPT/HCPCS: 99283

== ENCOUNTER → 2022-01-05 | Outpatient (CLI) | payer MEDICARE ==
--- NOTE | 2022-01-05 12:33 | XR ---
EXAMINATION TYPE: XR lumbar spine 2 or 3V DATE OF EXAM: 01/05/2022 CLINICAL HISTORY: Low back pain. TECHNIQUE: Frontal and lateral images of the lumbar spine are obtained. COMPARISON: Lumbar spine x-ray November 19, 2020 FINDINGS: There are 5 lumbar type vertebral bodies redemonstrated. Stable slightly bow convex scolio sis centered at L2-L3 level. Vertebral body heights remain within normal limits. Stable mild multil evel disc base narrowing with relative sparing of L3-L4 and L4-L5 levels. Persistent mild/moderate mu ltilevel anterior and lateral spurring. Prominent facet arthropathy in the lower lumbar spine redemon strated. Cholecystectomy clips are again seen. IMPRESSION: As above. No significant change from prior.
== END | disposition home or self-care (01) ==
LOC: RADXRMAIN 12:13
PROVIDERS: ATTEND Internal Medicine
DX: M51.26 Other intervertebral disc displacement, lumbar region (principal)
CPT/HCPCS: 72100

== ENCOUNTER → 2022-01-16 | Outpatient (CLI) | payer MEDICARE ==
--- NOTE | 2022-01-16 16:03 | CT ---
EXAMINATION TYPE: CT brain wo con DATE OF EXAM: 01/16/2022 COMPARISON: 03/20/2021 INDICATION: weakness to left side of body DLP: 1132 mGycm, Automated exposure control for dose reduction was used. CONTRAST: None CT of the brain is performed utilizing 3 mm thick sections through the posterior fossa and 3 mm thick sections through the remaining calvarium. Study is performed within 24 hours of arrival to the hosp ital. No abnormal hyperdensity is present to suggest an acute intracranial hemorrhage. No mass lesion is evident. No acute infarcts are evident. Periventricular white matter hypodensity is present, likely on the bas is of chronic white matter ischemic changes. Findings appear stable from comparison. Ventricles and sulci are appropriate for the patient age. Paranasal sinuses and mastoid air cells within the [id number] are clear. IMPRESSIONS: 1. Mild periventricular patchy white matter hypodensity, likely on the basis of chronic white matte r ischemic changes, present previously.
== END | disposition home or self-care (01) ==
LOC: RADCTMAIN 13:42
PROVIDERS: ATTEND Internal Medicine
DX: I67.82 Cerebral ischemia (principal); R20.8 Other disturbances of skin sensation
CPT/HCPCS: 70450

== ENCOUNTER → 2022-02-10 | Outpatient (CLI) | payer MEDICARE ==
--- NOTE | 2022-02-12 22:20 | MR ---
EXAMINATION TYPE: MR lumbar spine wo con DATE OF EXAM: 02/11/2022 COMPARISON: Plain film 01/05/2022 HISTORY: Low back pain TECHNIQUE: Multiplanar, multisequence images of the lumbar spine were acquired without IV contrast. L1-L2: Circumferential posterior disc bulge causes minimal anterior mass effect on the thecal sac. No significant foraminal encroachment. Increased signal in the vertebral bodies likely risk control representative o f hemangioma. L2-L3: Facet arthropathy causing some posterior lateral mass effect on the thecal sac greater from th e right. No significant foraminal encroachment. Posterior disc bulge causes minimal anterior mass eff ect on the thecal sac. L3-L4: Posterior broad-based disc bulge causes mild anterior mass effect on the thecal sac. Facet art hropathy causes posterior lateral mass effect on the thecal sac. L4-L5: Listhesis contributes with facet arthropathy and hypertrophy ligamentum flavum causing some po sterior lateral mass effect to cause some mild spinal stenosis, circumferential disc bulge posteriorl y causes mild anterior mass effect on the thecal sac. No significant foraminal encroachment. L5-S1: Facet arthropathy is noted. Circumferential extension of endplate disc complex encroaches grea ter on the left neural foramen on the right Lumbar segments are intact. No paraspinal masses are identified. Conus medullaris has a normal appe arance. There is a levoscoliosis centered at L3. No significant spinal stenosis. Loss of disc height signal is present especially at L5-S1 and to lesser extent L4-5, minimal anterolisthesis grade 1 L4-5 . Endplate discogenic marrow signal changes are present. Suspect parapelvic cysts are present within the kidneys. IMPRESSION: Degenerative disc disease, facet arthropathy, foraminal encroachment as described.
== END | disposition home or self-care (01) ==
LOC: RADMRIMAIN 13:09
PROVIDERS: ATTEND Nurse Practitioner Family
DX: M47.817 Spondylosis without myelopathy or radiculopathy, lumbosacral region (principal); M51.36 Other intervertebral disc degeneration, lumbar region; M51.26 Other intervertebral disc displacement, lumbar region; M48.061 Spinal stenosis, lumbar region without neurogenic claudication; M41.86 Other forms of scoliosis, lumbar region
CPT/HCPCS: 72148

== ENCOUNTER → 2022-02-17 | Outpatient (CLI) | payer MEDICARE ==
[2022-02-17 14:55] LABS: HCT 43.3 % (39.6-50.0); HGB 14.8 g/dL (13.0-17.0); MCH 32.7 pg (27.0-32.0); MCHC 34.2 g/dL (32.0-37.0); MCV 95.8 fL (80.0-97.0); Mean Platelet Volume 11.7 fL (9.5-12.2); NRBC Per 100 WBC 0 /100 WBCS (0.0-0.0); Platelet Count 225 X 10*3/uL (140-440); RBC 4.52 X 10*6/uL (4.40-5.60); RDW 13.2 % (11.5-14.5); WBC 6.37 X 10*3/uL (4.50-10.00)
[2022-02-17 15:31] LABS: Erythrocyte Sedimentation Rate 37 mm/Hr (0-20)
[2022-02-17 16:57] LABS: Chol/HDL Ratio 3.66 Ratio; LDL Cholesterol,Calculated 136.4 mg/dL (0.0-131.0)
== END | disposition home or self-care (01) ==
LOC: LABWHC1 09:04
PROVIDERS: ATTEND Physician Assistant
DX: N64.81 Ptosis of breast (principal); G60.2 Neuropathy in association with hereditary ataxia
CPT/HCPCS: 36415; 80061; 82306; 82607; 84207; 85027; 85652

== ENCOUNTER 2022-03-09 13:02 | Emergency (ER) | payer MEDICARE ==
[2022-03-09] MEDS ORDERED: BACITRACIN OINT 1 EACH PACKET TOPICAL ONE (13:06)
[2022-03-09] MEDS ORDERED: DIPH,PERTUS(ACELL)TETVAC-LF 0.5 ML VIAL IM ONE (13:06)
[2022-03-09] MEDS ORDERED: LIDOCAINE 1% INJ 10MG/ML (20 ML MDV) SQ ONE (13:07)
--- NOTE | 2022-03-09 13:17 | ED ---
Wound/Laceration HPI - General Chief Complaint: Wound/Laceration Stated Complaint: Rt. hand finger lac Time Seen by Provider: 03/09/22 13:06 Source: patient, family, RN notes reviewed, old records reviewed Mode of arrival: ambulatory Limitations: no limitations - History of Present Illness Initial Comments: Well-appearing 76-year-old male presents with laceration to his right index finger 30 minutes prior to arrival on a wheel grinder. Patient is not sure if he hit the bone. States was unable to control the bleeding at home. He does have full range of motion. Does take an aspirin a day. Tetanus shot is not up-to-date. -: minutes(s) (30) Extremity Location: Right: Hand (index finger dorsal surface proximal to PIP joint) Place: outdoors Context: power tool use (wheel grinder) Associated Symptoms: none - Related Data Home Medications Medication Instructions Recorded Confirmed Cholecalciferol (Vitamin D3) 2,000 unit PO DAILY 11/22/19 11/23/19 [Vitamin D3] Glucosam/Chond/Hyalu/Cf Borate 1 each PO DAILY 11/22/19 11/23/19 [Move Free Joint Health Tablet] Multivitamins, Thera [Multivitamin 1 tab PO DAILY 11/22/19 11/23/19 (formulary)] flaxseed oiL [Flaxseed Oil] 1,000 mg PO DAILY 11/22/19 11/23/19 Previous Rx's Medication Instructions Recorded Ciprofloxacin HCl 500 mg PO BID #14 tab 12/29/21 Allergies Allergy/AdvReac Type Severity Reaction Status Date / Time No Known Allergies Allergy Verified 12/29/21 17:25 Review of Systems ROS Statement: Those systems with pertinent positive or pertinent negative responses have been documented in the HPI. ROS Other: All systems not noted in ROS Statement are negative. Past Medical History Past Medical History: No Reported History Additional Past Medical History / Comment(s): HYPOTENSION. History of Any Multi-Drug Resistant Organisms: None Reported Past Surgical History: Cholecystectomy Additional Past Surgical History / Comment(s): POLYPS. BILATARAL CATARACTS. CUT TO WRIST, STICHES ( WAS NOT SURE OF WHAT SIDE). Past Anesthesia/Blood Transfusion Reactions: No Reported Reaction Past Psychological History: No Psychological Hx Reported Past Alcohol Use History: Occasional Past Drug Use History: None Reported - Past Family History Father Family Medical History: Cancer Additional Family Medical History / Comment(s): unknown Sister(s) Additional Family Medical History / Comment(s): Heart condition Brother(s) Family Medical History: CVA/TIA General Exam Limitations: no limitations General appearance: alert, in no apparent distress Head exam: Present: atraumatic Respiratory exam: Absent: respiratory distress, accessory muscle use Cardiovascular Exam: Present: regular rate Extremities exam: Present: normal capillary refill Right Hand Wrist exam: Present: full ROM, tenderness, laceration (2cm laceration). Absent: deformity, crepitus, dislocation Neuro motor exam: Present: wrist extension intact, thumb opposition intact, thumb IP flexion intact, thumb adduction intact, fingers 2-5 abduction intact Neurosensory exam: Present: radial nerve intact, ulnar nerve intact, median nerve intact Vascular: Present: normal capillary refill. Absent: vascular compromise Neurological exam: Present: alert, oriented X3 Psychiatric exam: Present: normal affect, normal mood Skin exam: Present: warm, dry, normal color. Absent: cyanosis, diaphoretic, petechiae, pallor Course Vital Signs 03/09/22 03/09/22 13:04 13:48 Temperature 97.9 F 98.0 F Pulse Rate 73 59 L Respiratory 16 18 Rate Blood Pressure 178/92 169/87 O2 Sat by Pulse 98 98 Oximetry Procedures - Laceration Laceration #1 Consent Obtained: verbal consent Indication: laceration Size (cm): 2 Description: linear Depth: simple, single layer Anesthetic Used: lidocaine 1% Anesthesia Technique: local infiltration Pre-repair: irrigated extensively Type of Sutures: nylon Size of Sutures: 5-0 Number of Sutures: 4 Technique: simple, interrupted Patient Tolerated Procedure: no complications Medical Decision Making - Medical Decision Making Patient presents with a 2 cm laceration to his index finger. Capillary refill less than 2 seconds. He does have good range of motion. Flexor and extensor tendons are intact. He does take an aspirin daily. Wound was irrigated with copious amounts of saline and Betadine solution. X-ray shows no fracture, no suspicious foreign body. Sutures placed and tetanus shot was updated. Wound was dressed with Betadine and a bulky dressing. He was instructed to have sutures removed in 7-10 days. Return to the emergency room if any new concerning symptoms. Disposition Clinical Impression: Laceration Disposition: HOME SELF-CARE Condition: Good Instructions (If sedation given, give patient instructions): Care For Your Stitches (ED), Finger Laceration (ED) Additional Instructions: Keep the bandage in place until tomorrow morning. Remove the bandage tomorrow and place and thin layer of Neosporin over your sutures. Keep the wound clean and dry. Sutures to be removed in 7-10 days. Return to the emergency room if any new or concerning symptoms inculding sign of infection, fever, redness or drainage. Is patient prescribed a controlled substance at d/c from ED?: No Referrals: Ronna Bazan MD [Primary Care Provider] - 1-2 days Time of Disposition: 13:45
--- NOTE | 2022-03-09 13:50 | XR ---
EXAMINATION TYPE: XR finger RT DATE OF EXAM: 03/09/2022 COMPARISON: NONE HISTORY: Laceration injury with pain. TECHNIQUE: 3 views right second finger are acquired. FINDINGS: No acute displaced fracture of the right second finger. Mild to moderate narrowing second P IP joint. Mild narrowing and spurring second PIP joint. Overlying soft tissue shows no suspicious rad iodense foreign body. IMPRESSION: As above.
[2022-03-09 13:52] VITALS: BP 169/87; PULSE 59; RESP 18; TEMP 98
== END 2022-03-09 13:50 | disposition home or self-care (01) ==
LOC: EC 13:02
DX: S61.210A Laceration without foreign body of right index finger without damage to nail, initial encounter (principal); Z23 Encounter for immunization; W29.8XXA Contact with other powered hand tools and household machinery, initial encounter
CPT/HCPCS: 12001; 73140; 90715; 90471; 99282; J2001; 99283

== ENCOUNTER → 2022-04-06 | Outpatient (CLI) | payer MEDICARE ==
[2022-04-07 14:03] LABS: Albumin 4.24 g/dL (3.80-4.90); Gamma Globulin 1.34 g/dL (0.70-1.50)
== END | disposition home or self-care (01) ==
LOC: LABWHC1 12:40
PROVIDERS: ATTEND Physician Assistant
DX: G62.9 Polyneuropathy, unspecified (principal)
CPT/HCPCS: 36415; 84165

== ENCOUNTER → 2022-06-26 | Outpatient (CLI) | payer MEDICARE | END | disposition home or self-care (01) | LOC: LABWHC1 11:58 | PROVIDERS: ATTEND Psychiatry & Neurology Neurology | DX: G90.09 Other idiopathic peripheral autonomic neuropathy (principal); D47.2 Monoclonal gammopathy | CPT/HCPCS: 36415; 86334 ==

== ENCOUNTER → 2022-10-09 | Outpatient (CLI) | payer MEDICARE ==
[2022-10-09 20:44] LABS: HCT 44.4 % (39.6-50.0); HGB 14.6 g/dL (13.0-17.0); MCH 32.1 pg (27.0-32.0); MCHC 32.9 g/dL (32.0-37.0); MCV 97.6 fL (80.0-97.0); Mean Platelet Volume 11.1 fL (9.5-12.2); NRBC Per 100 WBC 0 /100 WBCS (0.0-0.0); Platelet Count 223 X 10*3/uL (140-440); RBC 4.55 X 10*6/uL (4.40-5.60); RDW 12.9 % (11.5-14.5); WBC 6.35 X 10*3/uL (4.50-10.00)
[2022-10-09 20:49] LABS: African American GFR (CKD) 74.1 (60.0-200.0); Anion Gap 9.7 mmol/L (10.00-18.00); Blood Urea Nitrogen 21.6 mg/dL (9.0-27.0); Carbon Dioxide 27.3 mmol/L (20.0-27.5); Potassium 5.1 mmol/L (3.5-5.5)
== END | disposition home or self-care (01) ==
LOC: LABPAT 12:14
PROVIDERS: ATTEND Internal Medicine
DX: Z01.812 Encounter for preprocedural laboratory examination (principal); R94.39 Abnormal result of other cardiovascular function study
CPT/HCPCS: 36415; 80051; 82565; 84520; 85027

== ENCOUNTER 2022-10-21 06:28 | Day surgery (SDC) | payer MEDICARE ==
[2022-10-19 10:59] VITALS: BMI 27.8
[~2022-10-21 06:28] MED LIST changes: +ALPRAZolam 0.25 MG TAB PO PRN; +ALPRAZolam 0.5 MG TAB PO PRN; +ASPIRIN 325 MG TAB PO STA; -DEXAMETHASONE SOD PHOSPHATE 10 MG/ML 1 ML VIAL IV ONE; -HYDROmorphone 0.5 MG/0.5 ML SYRINGE IVP PRN; -LIDOCAINE 1% (10MG/ML) FOR IV START INTRADERMA PRN; +NITROGLYCERIN SL TABS 0.4 MG TAB SUBLINGUAL PRN; -ONDANSETRON 4 MG/2 ML VIAL IVP ONE; +SODIUM CHLORIDE 0.9% 1,000 ML in EMPTY BAG 1 BAG IV SCH
[2022-10-21 07:09] VITALS: RESP 18; TEMP 97.9
[2022-10-21] MEDS ORDERED: VERAPAMIL 2.5 MG/ML 2 ML AMP ONE (07:10)
[2022-10-21] MEDS ORDERED: HEPARIN SODIUM 1,000 UN/ML (10ML VL) ONE (07:10)
[2022-10-21] MEDS ORDERED: fentaNYL (PF) 50 MCG/ML 2 ML AMP ONE (07:11)
[2022-10-21] MEDS ORDERED: fentaNYL (PF) 50 MCG/ML 2 ML AMP IVP ONE (07:41)
[2022-10-21] MEDS: MIDAZOLAM 2 MG/2 ML VIAL IVP ONE ×2 (07:41→07:46)
[2022-10-21] MEDS ORDERED: LIDOCAINE 1% INJ 10MG/ML (5 ML VIAL-PF) SQ ONE (07:43)
[2022-10-21] MEDS ORDERED: VERAPAMIL SYRINGE (5 MG/10 ML) INTRAARTER ONE (07:45)
[2022-10-21] MEDS ORDERED: HEPARIN SODIUM 1,000 UN/ML (10ML VL) IVP ONE (07:47)
--- NOTE | 2022-10-21 07:59 | P.CARDCATH ---
Description of Procedure: PROCEDURES PERFORMED: Left heart catheterization, bilateral coronary angiography INDICATION: Abnormal stress test CONSENT:I have discussed the risks, benefits and alternative therapies for the above-mentioned procedure and for both sedation/analgesia as well as necessary blood product administration, if indicated, as they pertain to this patient. The patient has indicated understanding and acceptance of the risks and procedures discussed. PROCEDURE: After the risks, benefits and alternatives of the above mentioned procedure explained in detail with the patient, informed consent was obtained. Patient was taken to the catheterization lab and prepped and draped in usual fashion. 1% lidocaine was used to anesthetize the right radial artery. A 6- Thai sheath was placed in the right radial artery using modified Seldinger technique. Left coronary angiography was performed with a 5-Thai JL 3.5 catheter and right coronary angiography was performed with a 5-Thai JR5 catheter in various views. A 5-Thai FR5 catheter was inserted into the left ventricle and pressure measurements were obtained. The right radial sheath was removed and a TR band was placed with hemostasis achieved. The patient tolerated the procedure well. Patient was transported back to the post catheterization holding area in stable condition. Conscious Sedation: Patient was monitored under the direct supervision of myself for conscious sedation using Versed and fentanyl for a total duration of 12 minutes HEMODYNAMICS: Aorta: 160/78 LV: 162/10, LVEDP 28 SELECTIVE CORONARY ARTERIOGRAPHY: LEFT MAIN: The left main is a large caliber vessel which bifurcates into the LAD and circumflex. There is no significant stenosis. LEFT ANTERIOR DESCENDING CORONARY ARTERY: LAD is a large caliber vessel which wraps around to the apex. There is no significant stenosis. LEFT CIRCUMFLEX CORONARY ARTERY: Left circumflex is a moderate caliber vessel without significant stenosis. RIGHT CORONARY ARTERY: The right coronary artery is a large caliber vessel which gives off a PDA and PLV branch and is the dominant vessel. There is no significant stenosis. FINAL IMPRESSION: 1. Normal coronary arteries as described above. 2. Elevated left sided filling pressures PLAN: 1. Aggressive risk factor modification per most recent ACC/AHA guidelines. 2. Follow-up in the office in 1-2 weeks.
[2022-10-21] MEDS ORDERED: IOPAMIDOL-370 200ML BTL INJ ONE (08:00)
[2022-10-21 11:23] VITALS: BP 151/77; PULSE 51
== END 2022-10-21 11:48 | disposition home or self-care (01) ==
LOC: CATHCVL 06:28
PROVIDERS: ATTEND Internal Medicine
DX: R94.39 Abnormal result of other cardiovascular function study (principal)
CPT/HCPCS: 93458; C1769; C1894; J2250; J2001; J3010; J1644; Q9967

== ENCOUNTER → 2023-01-12 | Outpatient (CLI) | payer MEDICARE ==
--- NOTE | 2023-01-12 14:00 | XR ---
EXAMINATION TYPE: XR ankle complete LT DATE OF EXAM: 01/12/2023 1:23 PM INDICATION: Patient age:Male; 77 years old; Reason for study: M25.572 Acute left ankle pain; COMPARISON: None TECHNIQUE: The left ankle is imaged in frontal, lateral and oblique projections. FINDINGS: There is no evidence of acute osseous pathology. The joint spaces are well-preserved without evidenc e of subluxation or dislocation. Kager's fat pad is intact. Mild soft tissue swelling around the ankl e. No radiopaque foreign bodies are identified. Mild calcaneal plantar spurring and Achilles enthesop hyte. No significant degeneration changes of the foot. IMPRESSION: 1. No evidence of acute fracture. 2. Subcutaneous swelling around the ankle likely secondary to underlying soft tissue injury.
== END | disposition home or self-care (01) ==
LOC: RADXRMAIN 13:09
PROVIDERS: ATTEND Internal Medicine
DX: M25.572 Pain in left ankle and joints of left foot (principal); M79.89 Other specified soft tissue disorders

== ENCOUNTER → 2023-06-14 | Outpatient (CLI) | payer MEDICARE ==
--- NOTE | 2023-06-14 19:39 | MR ---
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 Can't understand words on left side. CONTRAST: Performed utilizing 9 mL intravenous Gadavist gadolinium contrast. TECHNIQUE: Multiplanar, multiecho imaging on a 3.0 Belinda magnet is performed through the brain. Stud y is performed within 24 hours of arrival to the hospital. The craniovertebral junction is normal. The pituitary is normal. Diffusion-weighted imaging is performed. No abnormal hyperintensity is present to suggest an acute i ntracranial infarct or acute ischemic change. There are scattered periventricular white matter hyperintensities, likely on the basis of chronic whi te matter ischemic changes. Some perivascular changes are likely present within the bilateral basal g anglion. Ventricles and sulci are prominent for the patient age. No suspicious enhancement is evident. IMPRESSION: 1. No suspicious acute or chronic infarct. 2. There are patchy bilateral deep white matter ischemic type changes.
== END | disposition home or self-care (01) ==
LOC: RADMRIMAIN 13:25
PROVIDERS: ATTEND Internal Medicine
DX: I67.82 Cerebral ischemia (principal)
CPT/HCPCS: 70553; A9585

== ENCOUNTER 2023-07-05 20:17 | Emergency (ER) | payer MEDICARE ==
--- NOTE | 2023-07-05 20:23 | ED ---
General Adult HPI - General Stated complaint: Stroke Time Seen by Provider: 07/05/23 20:19 - History of Present Illness Initial comments: Dictation was produced using [employer] dictation software. please excuse any grammatical, word or spelling errors. Chief Complaint: 78-year-old male with past medical history of CVA presents to the ER for strokelike symptoms History of Present Illness: Patient 78-year-old male presents to the emergency department for acute strokelike symptoms. His symptoms began at 7:30 PM. Approximately 50 minutes prior to arrival. Patient has history of CVA/TIA. Patient was noticed by his to walk into the bathroom at around 7:30 PM when all of a sudden he walked out and fell to the ground. Patient has a history of strokes. Does not take any anticoagulation medications. Patient denies any numbness. Patient alert and oriented states that he denies any pain. The ROS documented in this emergency department record has been reviewed and confirmed by me. Those systems with pertinent positive or negative responses have been documented in the HPI. All other systems are other negative and/or noncontributory. - Related Data Home Medications Medication Instructions Recorded Confirmed Clopidogrel [Plavix] 75 mg PO DIRECTED 07/05/23 07/05/23 Rosuvastatin [Crestor] 10 mg PO DIRECTED 07/05/23 07/05/23 Allergies Allergy/AdvReac Type Severity Reaction Status Date / Time atorvastatin AdvReac severe Verified 07/05/23 20:52 muscle and joint pain Review of Systems ROS Statement: Those systems with pertinent positive or pertinent negative responses have been documented in the HPI. ROS Other: All systems not noted in ROS Statement are negative. Past Medical History Past Medical History: CVA/TIA Additional Past Medical History / Comment(s): recent stress test-"possible blockage in lower part of heart",freq nasal congestion and mouth breathes,hx "a couple mini strokes-unk dates and no residual" History of Any Multi-Drug Resistant Organisms: None Reported Past Surgical History: Cholecystectomy Additional Past Surgical History / Comment(s): POLYPS. BILATARAL CATARACTS. Past Anesthesia/Blood Transfusion Reactions: No Reported Reaction Additional Past Anesthesia/Blood Transfusion Reaction / Comment(s): no hx blood transfusion Smoking Status: Never smoker - Past Family History Father Family Medical History: Cancer Additional Family Medical History / Comment(s): unknown Sister(s) Additional Family Medical History / Comment(s): Heart condition Brother(s) Family Medical History: CVA/TIA General Exam - General Exam Comments Initial Comments: PHYSICAL EXAM: General Impression: Alert and oriented x3, not in acute distress HEENT: Normocephalic atraumatic, extra-ocular movements intact, pupils equal and reactive to light bilaterally, mucous membranes moist. Cardiovascular: Heart regular rate and rhythm Chest: Able to complete full sentences, no retractions, no tachypnea Abdomen: abdomen soft, non-tender, non-distended, no organomegaly Musculoskeletal: Pulses present and equal in all extremities, no peripheral edema Motor: no focal deficits noted Neurological: CN II-XII grossly intact, ataxia and drift of the right upper and right lower extremity, NIH score of 4 Skin: Intact with no visualized rashes Psych: Normal affect and mood Course Vital Signs 07/05/23 07/05/23 07/05/23 20:21 20:54 21:00 Temperature 98.3 F 98.1 F Pulse Rate 60 57 L 56 L Respiratory 65 H 12 10 L Rate Blood Pressure 192/105 190/115 199/105 O2 Sat by Pulse 98 Oximetry - Reevaluation(s) Reevaluation #1: 07/05/23 20:41 Code stroke was paged. Patient was seen immediately and in the hallway prior to getting the CT films. CT shows intra cranial bleeding at the area of the left caudate nucleus. This does appear to affect the posterior limb of the internal capsule on the left side. Case was discussed with stroke neurologist, Dr. England who recommends patient be transferred to [facility]. and patient were is informed of patient's clinical status. They are agreeable with plan. Patient's blood pressure is 192/105. Patient started on labetalol for SBP titration of 1 40-1 60. Patient not on anticoagulation medications. EKG Findings - EKG Comments: EKG Findings:: My EKG interpretation: Ventricular rate 58, sinus bradycardia,. 199, QRS 90, QTc 445. No MD prolongation, no QTC prolongation, no ST or T-wave changes noted. Overall, this EKG is unremarkable Medical Decision Making - Medical Decision Making Was pt. sent in by a medical professional or institution (, PA, CAR TRACER, urgent care, hospital, or custodial...) When possible be specific @ -No Did you speak to anyone other than the patient for history (EMS, parent, family, police, friend...)? What history was obtained from this source @ -No Did you review nursing and triage notes (agree or disagree)? Why? @ -I reviewed and agree with nursing and triage notes Were old charts reviewed (outside hosp., previous admission, EMS record, old EKG, old radiological studies, urgent care reports/EKG's, custodial records)? Report findings @ -No old charts were reviewed Differential Diagnosis (chest pain, altered mental status, abdominal pain women, abdominal pain men, vaginal bleeding, musculoskeletal, weakness, fever, dyspnea, syncope, headache, dizziness, GI bleed, back pain, seizure, CVA, palpatations, mental health)? @ - Differential CVA: Ischemic stroke, hemorrhagic stroke, brain tumor, atypical migraine, Wernicke's encephalopathy, seizure, multiple sclerosis, meningitis, encephalitis, hypoglycemia, Guillain-Riley, electrolytes disturbance, myasthenia gravis.... This is not meant to be an all-inclusive list EKG interpreted by me (3pts min.). @ -None done X-rays interpreted by me (1pt min.). @ -None done CT interpreted by me (1pt min.). @ -CT scan of the brain shows left-sided intracranial bleed at the internal capsule. U/S interpreted by me (1pt. min.). @ -None done What testing was considered but not performed or refused? (CT, X-rays, U/S, labs)? Why? @ -None What meds were considered but not given or refused? Why? @ -None Did you discuss the management of the patient with other professionals (professionals i.e. , PA, CAR TRACER, lab, RT, psych nurse, rn social services, blade bender furnace tender, teacher, community service patrol officer, counter caser)? Give summary @ -See above Was smoking cessation discussed for >3mins.? @ -No Was critical care preformed (if so, how long)? @ -yes, 33 minutes Were there social determinants of health that impacted care today? How? (Homelessness, low income, unemployed, alcoholism, drug addiction, transportation, low edu. Level, literacy, decrease access to med. care, fdc, rehab)? @ -No Was there de-escalation of care discussed even if they declined (Discuss DNR or withdrawal of care, Hospice)? DNR status @ -No What co-morbidities impacted this encounter? (DM, HTN, Smoking, COPD, CAD, Cancer, CVA, ARF, Chemo, Hep., AIDS, mental health diagnosis, sleep apnea, morbid obesity)? @ -None Was patient admitted / discharged? Hospital course, mention meds given and route, prescriptions, significant lab abnormalities, going to OR and other pertinent info. @ -78-year-old male presents emergency department for acute strokelike symptoms. Vital signs upon arrival shows elevated blood pressure. Patient was a code stroke. Intracranial hemorrhage noted. Case discussed with stroke neurologist recommends transfer to [facility]. Accepting physician is Dr. England. Undiagnosed new problem with uncertain prognosis? @ -No Drug Therapy requiring intensive monitoring for toxicity (Heparin, Nitro, Insulin, Cardizem)? @ -No Were any procedures done? @ -No Diagnosis/symptom? Acute, or Chronic, or Acute on Chronic? Uncomplicated (without systemic symptoms) or Complicated (systemic symptoms)? @ -Intracranial bleed Side effects of treatment? @ -No Exacerbation, Progression, or Severe Exacerbation? @ -No Poses a threat to life or bodily function? How? (Chest pain, USA, AR, pneumonia, PE, COPD, DKA, ARF, appy, cholecystitis, CVA, Diverticulitis, Homicidal, Suicidal, threat to staff... and all critical care pts) @ -yes - Lab Data Result diagrams: 07/05/23 20:49 07/05/23 20:44 Lab Results 07/05/23 07/05/23 07/05/23 Range/Units 20:44 20:49 20:49 WBC 5.7 (3.8-10.6) k/uL RBC 4.09 L (4.30-5.90) m/uL Hgb 13.5 (13.0-17.5) gm/dL Hct 39.3 (39.0-53.0) % MCV 96.1 (80.0-100.0) fL MCH 32.9 (25.0-35.0) pg MCHC 34.2 (31.0-37.0) g/dL RDW 12.8 (11.5-15.5) % Plt Count 177 (150-450) k/uL MPV 8.7 Neutrophils % 42 % Lymphocytes % 42 % Monocytes % 9 % Eosinophils % 2 % Basophils % 1 % Neutrophils # 2.4 (1.3-7.7) k/uL Lymphocytes # 2.4 (1.0-4.8) k/uL Monocytes # 0.5 (0-1.0) k/uL Eosinophils # 0.1 (0-0.7) k/uL Basophils # 0.0 (0-0.2) k/uL PT 11.5 (10.0-12.5) sec INR 1.1 (<1.2) APTT 18.8 L (22.0-30.0) sec Sodium 138 (137-145) mmol/L Potassium 3.8 (3.5-5.1) mmol/L Chloride 109 H (98-107) mmol/L Carbon Dioxide 25 (22-30) mmol/L Anion Gap 4 mmol/L BUN 26 H (9-20) mg/dL Creatinine 0.90 (0.66-1.25) mg/dL Est GFR (CKD-EPI)AfAm >90 (>60 ml/min/1.73 sqM) Est GFR (CKD-EPI)NonAf 81 (>60 ml/min/1.73 sqM) Glucose 86 (74-99) mg/dL Calcium 8.1 L (8.4-10.2) mg/dL Total Bilirubin 0.5 (0.2-1.3) mg/dL AST 34 (17-59) U/L ALT 26 (4-49) U/L Alkaline Phosphatase 43 (38-126) U/L Creatine Kinase 52 L (55-170) U/L Troponin I (0.000-0.034) ng/mL Total Protein 6.5 (6.3-8.2) g/dL Albumin 3.4 L (3.5-5.0) g/dL 07/05/23 Range/Units 20:49 WBC (3.8-10.6) k/uL RBC (4.30-5.90) m/uL Hgb (13.0-17.5) gm/dL Hct (39.0-53.0) % MCV (80.0-100.0) fL MCH (25.0-35.0) pg MCHC (31.0-37.0) g/dL RDW (11.5-15.5) % Plt Count (150-450) k/uL MPV Neutrophils % % Lymphocytes % % Monocytes % % Eosinophils % % Basophils % % Neutrophils # (1.3-7.7) k/uL Lymphocytes # (1.0-4.8) k/uL Monocytes # (0-1.0) k/uL Eosinophils # (0-0.7) k/uL Basophils # (0-0.2) k/uL PT (10.0-12.5) sec INR (<1.2) APTT (22.0-30.0) sec Sodium (137-145) mmol/L Potassium (3.5-5.1) mmol/L Chloride (98-107) mmol/L Carbon Dioxide (22-30) mmol/L Anion Gap mmol/L BUN (9-20) mg/dL Creatinine (0.66-1.25) mg/dL Est GFR (CKD-EPI)AfAm (>60 ml/min/1.73 sqM) Est GFR (CKD-EPI)NonAf (>60 ml/min/1.73 sqM) Glucose (74-99) mg/dL Calcium (8.4-10.2) mg/dL Total Bilirubin (0.2-1.3) mg/dL AST (17-59) U/L ALT (4-49) U/L Alkaline Phosphatase (38-126) U/L Creatine Kinase (55-170) U/L Troponin I <0.012 (0.000-0.034) ng/mL Total Protein (6.3-8.2) g/dL Albumin (3.5-5.0) g/dL Disposition Clinical Impression: ICH (intracerebral hemorrhage) Disposition: OTHER INSTITUTION NOT DEFINED Condition: Critical Referrals: Leonel Travis MD [Primary Care Provider] - 1-2 days Time of Disposition: 21:04 - Out of Hospital Transfer - Req. Specs Out of Hospital Transfer - Requested Specifics: Other Emergency Center ([facility]
[2023-07-05] MEDS ORDERED: LABETALOL 5 MG/ML VIAL MDV IVP STA (20:40)
[2023-07-05] MEDS ORDERED: LABETALOL 200 MG in SODIUM CHLORIDE 0.9% 160 ML IV ONE (20:45)
[2023-07-05 20:54] LABS: Basophils % (A) 1 %; Eosinophils # (A) 0.1 k/uL (0-0.7); Eosinophils % (A) 2 %; HCT 39.3 % (39.0-53.0); HGB 13.5 gm/dL (13.0-17.5); Lymphocytes # (A) 2.4 k/uL (1.0-4.8); Lymphocytes % (A) 42 %; MCH 32.9 pg (25.0-35.0); MCHC 34.2 g/dL (31.0-37.0); MCV 96.1 fL (80.0-100.0); Mean Platelet Volume 8.7; Monocytes # (A) 0.5 k/uL (0-1.0); Monocytes % (A) 9 %; Neutrophils # (A) 2.4 k/uL (1.3-7.7); Neutrophils % (A) 42 %; Platelet Count 177 k/uL (150-450); RBC 4.09 m/uL (4.30-5.90); RDW 12.8 % (11.5-15.5); WBC 5.7 k/uL (3.8-10.6)
[2023-07-05 21:06] LABS: ALT 26 U/L (4-49); AST 34 U/L (17-59); African American GFR (CKD) >90 (>60 ml/min/1.73 sqM); Albumin 3.4 g/dL (3.5-5.0); Alkaline Phosphatase 43 U/L (38-126); Anion Gap 4 mmol/L; Blood Urea Nitrogen 26 mg/dL (9-20); Calcium 8.1 mg/dL (8.4-10.2); Carbon Dioxide 25 mmol/L (22-30); Chloride 109 mmol/L (98-107); Creatine Kinase 52 U/L (55-170); Glucose 86 mg/dL (74-99); Non-African American GFR(CKD) 81 (>60 ml/min/1.73 sqM); Sodium 138 mmol/L (137-145); Total Bilirubin 0.5 mg/dL (0.2-1.3); Total Protein 6.5 g/dL (6.3-8.2)
[2023-07-05 21:11] LABS: INR 1.1 (<1.2); Prothrombin Time 11.5 sec (10.0-12.5)
[2023-07-05 21:13] LABS: Partial Thromboplastin Time 18.8 sec (22.0-30.0)
[2023-07-05 21:15] LABS: Potassium 3.8 mmol/L (3.5-5.1)
[2023-07-05] MEDS ORDERED: niCARdipine 20 MG in SODIUM CHLORIDE 0.9% 192 ML IV SCH (21:15)
[2023-07-05 21:19] VITALS: RESP 10; TEMP 98.1
--- NOTE | 2023-07-05 21:19 | CT ---
EXAMINATION TYPE: CT brain cspine wo con CT DLP: 1635.1 mGycm, Automated exposure control for dose reduction was used. DATE OF EXAM: 07/05/2023 8:36 PM COMPARISON: Head CT 01/16/2022 CLINICAL INDICATION:Male, 78 years old with history of Neuro deficit, acute, stroke suspected; Neuro deficit, acute, stroke suspected TECHNIQUE: Brain: Multiple axial CT images of the brain were obtained without IV contrast. Cspine: Axial CT images from the skull base to the inferior aspect of T2 we obtained without intraven ous contrast. Coronal and sagittal reformatted images were also reviewed. FINDINGS: Brain: Extra-axial spaces: No abnormal extra-axial fluid collections. Ventricular system: Appear dilated in proportion to the degree of cerebral atrophy. Cerebral parenchyma: New area of increased attenuation consistent with hemorrhage at the posterior a spect of the left basal ganglia and abutting the posterior aspect of the body of the left lateral damion tricle. Temporal and occipital horns are nondilated. Hemorrhage measures 2.2 x 1.7 cm axially and ext ends 2.6 cm craniocaudally. The rosas-white matter interface appears otherwise maintained throughout t he brain. Moderate generalized brain atrophy. Scattered and some confluent hypoattenuating areas ar e seen within the cerebral white matter, nonspecific but most often seen with chronic microvascular i schemic changes; moderate/severe in degree. Cerebellum: No acute abnormality. Mass effect: Mild edema surrounding the hemorrhage, placing mild mass effect/indentation on the poste rior aspect of the body of the left lateral ventricle. No midline shift. Intracranial vasculature: Calcification/atherosclerotic changes of the intracranial arteries. Soft tissues: No clearly acute abnormality. Visualized orbits: Orbital contents appear grossly intact. There has likely been previous lens surg drake. Calvarium/osseous structures: No evidence of calvarial fracture. Mild nasal septal deviation to the l eft. Paranasal sinuses and mastoid air cells: Clear. MRI is more sensitive for detecting acute processes such as infarct, and may be considered if clinica lly warranted. Cervical spine: Fracture: None seen. Osseous structures, spinal canal/neural foramina: Generalized osteopenia. There are generally mild to moderate changes of degenerative disc disease and facet arthropathy, without critical canal or neura l foraminal stenosis seen. The degree of disc disease appears greatest at the C5-C6 level where there are anterior more than posterior disc marginal osteophytes, and mild facet arthropathy, causing mild canal and right neural foraminal stenosis. There is also mild bilateral neural foraminal stenosis at the C3-C4 and C4-C5 levels. There are some small lytic appearing foci seen in the cervical spine wit h no large destructive lesion encountered. Small sclerotic density within the left mandibular condyle , could be bone island. Vertebral alignment: No traumatic malalignment. Straightening of the normal cervical lordosis from C2 to C6. Trace anterolisthesis C7 on T1 appears degenerative. Neck soft tissues: No acute finding.. Other: Lung apices show no acute infiltrate or pneumothorax. Mild chronic changes. IMPRESSION: CT head: 1. Acute 2.6 x 2.2 x 1.7 cm parenchymal hemorrhage on the left, at the posterior aspect of the basal ganglia. 2. Mild surrounding edema and mild mass effect/indentation on the adjacent left lateral ventricle, w ithout evidence of intraventricular hemorrhage or hydrocephalus. 3. Atrophy and chronic microvascular ischemic changes. CT cervical spine: 1. No evidence of acute cervical spine fracture or traumatic malalignment. 2. Mild/moderate cervical spondylosis. 3. Some small lytic appearing foci in the cervical spine, could be related to degenerative or osteopo rotic changes, versus metastasis or multiple myeloma.
[2023-07-05 23:29] VITALS: BP 163/87; PULSE 72
--- NOTE | 2023-07-05 23:45 | CT ---
EXAMINATION TYPE: CT angio head neck DATE OF EXAM: 07/05/2023 8:50 PM COMPARISON: CT head earlier today. CLINICAL INDICATION:Male, 78 years old with history of Neuro deficit, acute, stroke suspected; PHH, N euro deficit, acute, stroke suspected TECHNIQUE: Axially acquired helical CT angiogram of the head and neck was obtained with contrast. Axi al images are supplemented with 3D reconstructions which [facility] NASCET criteria used. Contrast used: 65 cc mL of Isovue 370 without and with IV Contrast, Oral contrast used: None. CT DLP: 746.1 mGycm, Automated exposure control for dose reduction was used. FINDINGS: CTA Neck: The left common carotid artery shares a common trunk with the brachiocephalic artery (bovine arch). B ranch vessels off the arch are patent. Bilateral subclavian arteries are patent. Right carotid system: The common carotid is patent. There is no hemodynamically significant diameter stenosis, dissection, nor pseudoaneurysm present. Left carotid system: The common carotid is patent. There is no hemodynamically significant diameter s tenosis, dissection, nor pseudoaneurysm present. Vertebral arteries: There is no significant atherosclerotic plaque at the origins of the vertebral ar teries. The vertebrals are then otherwise patent to the skull base. The vertebral arteries are codominant. Other: Visualized neck soft tissues show no acute abnormality. Mild asymmetric fullness in the appear ance of the left oropharyngeal soft tissues, likely positional but can be correlated with direct visu al inspection to exclude any mucosal lesion. Cervical spine shows mild degenerative changes. Included lung apices show chronic senescent changes without definite acute infiltrate or pneumothorax. CTA Head: The intracranial ICAs are widely patent. Bifurcations are patent, there are normally patent bilateral MCAs with normal distal arborization patterns. The left HERMINIA A1 segment is relatively hypoplastic, th e right A1 segment and anterior communicating artery are patent and robust. The right A2 segment of t he HERMINIA appears hypoplastic, with a robust left A2 segment later branching into a right and left anter ior cerebral artery. These appear patent. The intracranial vertebral arteries enhance normally, are slightly physiologically small in caliber a s is the basilar artery. Basilar artery is patent. Basilar bifurcation is without evidence of aneurys m. The basilar essentially terminates as the superior cerebellar arteries, and there is a origi n of both posterior cerebral arteries originating from the ICAs. Visualized general maintenance helper are patent. No intracranial large vessel occlusion, hemodynamically significant stenosis, aneurysm, dissection, o r arteriovenous malformation is shown. The dural venous sinuses appear grossly patent without evidence of thrombosis. Other: Parenchymal hematoma at the posterior aspect of the left basal ganglia shows no significant c hange compared to the prior CT. Please refer to same-day CT head report for more details. IMPRESSION: CTA neck: 1. No dissection, hemodynamically significant stenosis, or pseudoaneurysm detected in the carotid or vertebral arteries in the neck. CTA head: 1. No intracranial large vessel occlusion, significant stenosis, or sizable aneurysm detected in the limits of CTA. 2. Parenchymal hematoma at the posterior aspect of the left basal ganglia redemonstrated.
== END 2023-07-05 21:49 | disposition other institution (70) ==
LOC: EC 20:17
DX: I61.9 Nontraumatic intracerebral hemorrhage, unspecified (principal); I67.82 Cerebral ischemia; R00.1 Bradycardia, unspecified; Z86.73 Personal history of transient ischemic attack (TIA), and cerebral infarction without residual deficits; Z79.01 Long term (current) use of anticoagulants; Z88.8 Allergy status to other drugs, medicaments and biological substances
CPT/HCPCS: 99291; 36415; 93005; 80053; 82550; 84484; 85025; 85610; 85730; 72125; 70496; 70450; 70498; 96365; 96375; Q9967; J1920; 96374

== ENCOUNTER → 2023-09-02 | Outpatient (CLI) | payer MEDICARE ==
--- NOTE | 2023-09-05 16:28 | MR ---
EXAMINATION TYPE: MR brain wo/w con DATE OF EXAM: 09/02/2023 COMPARISON: 06/14/2023 HISTORY: Bleed, underlying mass, Follow-up stroke, right side weakness CONTRAST: Performed utilizing 9 mL intravenous Gadavist gadolinium contrast. TECHNIQUE: Multiplanar, multiecho imaging on a 3.0 Belinda magnet is performed through the brain. Stud y is performed within 24 hours of arrival to the hospital. The craniovertebral junction is normal. The pituitary is normal. Diffusion-weighted imaging is performed. No abnormal hyperintensity is present to suggest an acute i ntracranial infarct or acute ischemic change. There is blooming effect within the left thalamus. Prio r hemorrhage could be considered. This correlates with the CT brain of 07/05/2023. On post contrast im aging vascularity is noted no abnormal enhancement is evident. Vascularity is noted. In the bilateral basal ganglion, thalami, and within the periventricular regions are multiple punctat e hypointensities which appear larger on additional pulse sequences suggesting underlying blooming. T hese were present previously. Patchy periventricular white matter hypodensity is present, likely on the basis of chronic white annamaria er ischemic change. Ventricles and sulci are appropriate for the patient age. No abnormal enhancement is evident following contrast. IMPRESSION: 1. Changes in the left thalamus compatible with prior hemorrhage. Diffuse, punctate hypointensities a re stable from comparison. 2. Extensive periventricular white matter changes appears chronic and stable from comparison
== END | disposition home or self-care (01) ==
LOC: RADMRIMAIN 11:29
PROVIDERS: ATTEND Psychiatry & Neurology Neurology
DX: G93.89 Other specified disorders of brain (principal); I62.9 Nontraumatic intracranial hemorrhage, unspecified; I67.9 Cerebrovascular disease, unspecified
CPT/HCPCS: 70553; A9585

== ENCOUNTER → 2024-01-11 | Outpatient (CLI) | payer MEDICARE | END | disposition home or self-care (01) | LOC: LABPRL 09:33 | PROVIDERS: ATTEND Internal Medicine | DX: Z00.00 Encounter for general adult medical examination without abnormal findings (principal); E78.2 Mixed hyperlipidemia; E55.9 Vitamin D deficiency, unspecified; N40.0 Benign prostatic hyperplasia without lower urinary tract symptoms; N18.2 Chronic kidney disease, stage 2 (mild); R73.09 Other abnormal glucose; R35.0 Frequency of micturition | CPT/HCPCS: 80053; 80061; 81003; 82043; 82570; 83036; 84443; 85025 ==

== ENCOUNTER → 2024-10-05 | Outpatient (CLI) | payer MEDICARE ==
--- NOTE | 2024-10-05 13:08 | MR ---
EXAMINATION TYPE: MR brain wo/w con DATE OF EXAM: 10/05/2024 12:57 PM COMPARISON: None. CLINICAL INDICATION: Male, 79 years old with history of R90.89 OTH ABNORMAL FINDINGS ON DIAGNOSTIC IM AGING, f/u, history of brain bleed. abnormal prior mri TECHNIQUE: Multi planar multi sequence imaging of the brain. CONTRAST: Patient received 8.5 mL intravenous Gadobutrol gadolinium contrast. Pre and post contrast enhanced images are obtained. FINDINGS: The ventricles, basal cisterns and sulci overlying the cerebral convexities are mildly enlarged. There is evidence of moderate periventricular white matter ischemic demyelination. Remote deep white matter insults are also noted. No acute edema is seen on diffusion weighted imaging. There is no evidence for midline shift or mass effect. Acute intracranial hemorrhage or extra-axial collection is not evident. Hemosiderin deposition is r edemonstrated within the left thalamus from prior hemorrhage. No enhancing lesions are seen. The paranasal sinuses and mastoid air cells are well-aerated. IMPRESSION: 1. Age-related atrophic and chronic small vessel ischemic change. No acute intracranial process at t his time. 2. Hemosiderin deposition is redemonstrated within the left thalamus from prior hemorrhage. 3. No enhancing lesions are seen. [facility], , 10/05/2024 1:05 PM
== END | disposition home or self-care (01) ==
LOC: RADMRIMAIN 11:58
PROVIDERS: ATTEND Psychiatry & Neurology Neurology
DX: G31.1 Senile degeneration of brain, not elsewhere classified (principal); I67.82 Cerebral ischemia; R90.89 Other abnormal findings on diagnostic imaging of central nervous system
CPT/HCPCS: 70553; A9585